=== PATIENT | female | born 1945 ===

== ENCOUNTER 2021-12-27 07:06 | Day surgery (SDC) | payer OTHER ==
[2021-12-24 13:40] LABS: Urine Appearance CLEAR (Clear); Urine Bilirubin NEGATIVE (Negative); Urine Blood NEGATIVE (Negative); Urine Color YELLOW (Yellow); Urine Glucose NEGATIVE (Negative); Urine Protein NEGATIVE (Negative); Urine Urobilinogen 0.2 mg/dL (0.2-1.0)
[2021-12-24 13:41] LABS: Urine Microscopic Reflex NO UMIC
[2021-12-24 13:49] LABS: Absolute Lymphocytes (CBC) 3.1 K/uL (0.7-4.9); Hematocrit 44.2 % (36.0-45.0); Lymphocytes % 31.5 % (15.3-44.8); MPV 8.3 fL (7.6-11.3); RBC Red Blood Cell Count 5.06 M/uL (3.86-4.86)
--- NOTE | 2021-12-24 14:12 | RAD REPORT ---
EXAM DESCRIPTION: RAD - Hand Right 3 View - 12/24/2021 1:41 pm CLINICAL HISTORY: pre op for i and d of right hand, soft tissue infection from oyster shell COMPARISON: No comparisonsNone. FINDINGS: No fracture is identified. There is no dislocation or periosteal reaction noted. IP joint space narrowing is present with mild marginal spurring. No erosive component. MCP joint space narrow ing is minimal. There are [id number] degenerative changes at the trapezial first metacarpal art iculation. No pathologic bone process identifiable. At the site of soft tissue wound there are 2 faint less than 1 millimeter sized radiopaque densities seen. These are present only on the oblique view which has additional punctate densities. These are f avored to be film artifact rather than foreign body. IMPRESSION: No foreign body confirmed at the infection site. Punctate radiopaque densities on the ob lique view are favored to be film artifacts rather than retained foreign bodies. Joint degenerative change present as detailed. No acute or destructive bone process seen.
--- NOTE | 2021-12-24 14:14 | RAD REPORT ---
EXAM DESCRIPTION: RAD - Chest Pa And Lat (2 Views) - 12/24/2021 1:41 pm CLINICAL HISTORY: pre op for surgery, hypertension COMPARISON: January 2014 TECHNIQUE: Frontal and lateral views of the chest were obtained. FINDINGS: The lungs are clear. Interstitial pattern matches comparison. Diaphragm is flattened. Hea rt size is normal and central vasculature is within normal limits. No pleural effusion or pneumothor ax seen. No acute bony finding noted. No aortic abnormality. IMPRESSION: No acute cardiopulmonary process. No significant change from comparison study.
--- NOTE | 2021-12-25 12:49 | EKG ---
Test Date: 2021-12-24 Test Time: 13:07:54 Deputy Prosecuting Attorney: SHON MEASUREMENT RESULTS: Intervals: Rate: 62 ND: 156 QRSD: 74 QT: 382 QTc: 387 [place]: P: 72 ND: 156 QRS: 73 T: 23 INTERPRETIVE STATEMENTS: Normal sinus rhythm Normal ECG Compared to ECG 05/04/2006 13:14:06 Sinus bradycardia no longer present Electronically Signed On 12-25-21 12:46:33 HOSPITALIST PROGRAM DIRECTOR by Edison Weber
[2021-12-27] MEDS ORDERED: Ringers Lactate 1,000 ML IV ONE (07:12)
[2021-12-27] MEDS ORDERED: CEFAZOLIN/NS 1gm 1 GM/50 ML BAG ONE (07:13)
[2021-12-27] MEDS ORDERED: ACETAMINOPHEN 500 MG TAB ONE (08:41)
[2021-12-27] MEDS ORDERED: propofoL 200 MG/20 ML VIAL IV ONE (08:55)
[2021-12-27] MEDS ORDERED: LIDOCAINE 1% MPF 5 ML VIAL ONE (08:55)
[2021-12-27] MEDS ORDERED: FENTANYL CITR 100 MCG/2 ML ONE (08:55)
[2021-12-27] MEDS ORDERED: dexAMETHasone 10 MG/ML VIAL ONE (09:31)
[2021-12-27] MEDS ORDERED: ONDANSETRON 4 MG/2 ML VIAL ONE ×2 (09:31→11:06)
[2021-12-27] MEDS ORDERED: HYDROMORPHONE HCL 1 MG/ML INJ ONE (09:52)
[2021-12-27] MEDS ORDERED: GLYCOPYRROLATE 0.2 MG/ML SYR ONE (10:00)
[2021-12-27] MEDS ORDERED: CODEINE 30MG/APAP 300MG TAB ONE (10:35)
[2021-12-27 11:16] VITALS: BP 120/61; TEMP 96.7; O2SAT 97
--- NOTE | 2021-12-27 11:34 | OP ---
Surgeon: Markos Tejeda MD Preoperative Diagnosis: Foreign body of the right hand. Postoperative Diagnosis: Foreign body of the right hand. Procedure Performed: Removal of foreign body. Anesthesia: General. Procedure In Detail: After satisfactory induction of general anesthesia, the hand was prepped with B etadine scrub, Betadine paint. Dry sterile drapes were applied in the usual manner. Scalpel was use d to make an incision over the index finger metacarpal head on the palmar surface, foreign body consistent with oyster shell. It was excised with iris scissors. There was no injury below. The patient then had the wound irrigated with Betadine solution. Tourniquet released. Electrocauter y was used for hemostasis. Wound closed with 4-0 Prolene vertical mattress simple sutures, dressed w ith Xeroform, 2-inch Sukhwinder. The patient tolerated the procedure well and returned to recovery. DARRIUS/REAL Voice ID: [id number] Report ID: [id number]
--- NOTE | 2021-12-27 11:52 | HP ---
Date of Admission: 12/27/2021 History Of Present Illness: The patient is 76-year-old white female, right-hand dominant, foreign farhana dy in the right hand about a month while she was shucking oysters and . Past Medical History: She has history of previous tubal ligation, hematoma, problem with left eye. She has elevated blood pressure for which she is taking antihypertensives. Social History: She does not smoke. Does not drink. Allergies: NO ALLERGIES. Home Medications: Antihypertensives. Physical Examination: She has discoloration of the palm of the right hand near the right index finger metacarpal base and p almar surface, pigmentation and discoloration to the skin level, less than a cm in size. Assessment: Foreign body of the right hand. Plan: Removal and debridement. MELIA Voice ID: [id number]
== END 2021-12-27 11:13 | disposition home or self-care (01) ==
LOC: OR 07:06
PROVIDERS: ATTEND Specialist
PROC: 0JCJ0ZZ Extirpation of Matter from Right Hand Subcutaneous Tissue and Fascia, Open Approach (ICD-10-PCS; principal; 2021-12-27 09:00)
DX: M79.5 Residual foreign body in soft tissue (principal); Z20.822 Contact with and (suspected) exposure to COVID-19
CPT/HCPCS: 93005; 87070; 85025; 36415; 87205 ×2; 88304; 87075; 81003; 71046; 73130; 10120; U0002; J2704; J3010; J1100; J1170; J0690; J7120; J2405 ×2; 88305